=== PATIENT | female | born 1955 | race Caucasian/White ===

== ENCOUNTER 2019-11-29 09:30 | Outpatient (RCR) | payer MEDICARE, MEDICAID, SELFPAY | END 2019-12-24 23:59 | disposition home or self-care (01) | LOC: SPT 09:30 | PROVIDERS: Family Provider Registered Nurse; PCP Registered Nurse; Referring Provider Student in an Organized Health Care Education/Training Program; Visit Provider Registered Nurse | DX: Z86.73 Personal history of transient ischemic attack (TIA), and cerebral infarction without residual deficits (principal); I10 Essential (primary) hypertension | CPT/HCPCS: 97110; 97116; 97161 ==

== ENCOUNTER 2019-12-27 06:00 | Outpatient (RCR) | payer MEDICARE, MEDICAID, SELFPAY | END 2020-01-22 23:59 | disposition home or self-care (01) | LOC: SPT 06:00 | PROVIDERS: Family Provider Registered Nurse; PCP Registered Nurse; Referring Provider Student in an Organized Health Care Education/Training Program; Visit Provider Registered Nurse | DX: G45.9 Transient cerebral ischemic attack, unspecified (principal); I10 Essential (primary) hypertension | CPT/HCPCS: 97110; 97116 ==

== ENCOUNTER 2019-12-28 15:04 | Outpatient (CLI) | payer MEDICARE, MEDICAID, SELFPAY ==
--- NOTE | 2019-12-28 | XR_ITS ---
WS: [id number] KNEE RIGHT TECHNIQUE: 2 views of the right knee CLINICAL INFORMATION: KNEE PAIN COMPARISON: None. FINDINGS: Osteopenia. Moderate degenerative arthritis both medial joint compartments worse in the right with subchondral sclerosis. Hypertrophic right patella. No significant joint effusion. Hypertrophic changes along the joint line. XR/XR knee RT 1-2V [id number] IMPRESSION: Moderate tricompartmental arthritis both knees worse on the right involving the medial joint compartment and patellofemoral articulation. MTDD
--- NOTE | 2019-12-28 15:14 | XR_ITS ---
WS: [id number] KNEE LEFT TECHNIQUE: 2 views of the left knee CLINICAL INFORMATION: KNEE PAIN COMPARISON: None. FINDINGS: Lateral and sunrise view only of the left knee Osteopenia. Hypertrophic patella. Moderate to advanced degenerative narrowing at the patellofemoral a rticulation. No significant effusion. XR/XR knee LT 1-2V [id number] IMPRESSION: 1. Moderate tricompartmental arthritis left knee. 2. No significant joint effusion. 3. Hypertrophic patella. 4. Osteopenia.
--- NOTE | 2019-12-28 15:14 | XR_ITS ---
WS: [id number] KNEE RIGHT TECHNIQUE: 2 views of the right knee CLINICAL INFORMATION: KNEE PAIN COMPARISON: None. FINDINGS: Osteopenia. Moderate degenerative arthritis both medial joint compartments worse in the right with oliva bchondral sclerosis. Hypertrophic right patella. No significant joint effusion. Hypertrophic changes along the joint line. XR/XR knee RT 1-2V [id number] IMPRESSION: Moderate tricompartmental arthritis both knees worse on the right involving the medial joint compartment and patellofemoral articulation.
== END 2019-12-28 15:05 | disposition home or self-care (01) ==
LOC: RAD 15:10
PROVIDERS: Family Provider Registered Nurse; PCP Registered Nurse; Visit Provider Orthopaedic Surgery
DX: M13.862 Other specified arthritis, left knee (principal); M13.861 Other specified arthritis, right knee; M85.88 Other specified disorders of bone density and structure, other site
CPT/HCPCS: 73560; 73565

== ENCOUNTER 2020-01-13 12:06 | Outpatient (CLI) | payer MEDICARE, MEDICAID, SELFPAY ==
--- NOTE | 2020-01-13 12:13 | MM_ITS ---
WS: [id number] BILATERAL DIGITAL SCREENING MAMMOGRAM WITH CAD CLINICAL INFORMATION: SCREENING HISTORY: Screening mammogram. No current complaints. COMPARISON: None. TECHNIQUE: Bilateral CC and MLO views. FINDINGS: Fatty-replaced breasts bilaterally. Lucent centered calcifications. No suspicious focal mass, asymmet ry, calcifications, or architectural distortion. No evidence of malignancy. MM/[place] [id number] IMPRESSION: BI-RADS: 2-Benign FOLLOW UP: 1 Year Follow-up Recommend return to annual screening mammography.
== END 2020-01-13 12:07 | disposition home or self-care (01) ==
LOC: RADSHAW 12:06
PROVIDERS: Family Provider Registered Nurse; PCP Registered Nurse; Visit Provider Registered Nurse
DX: Z12.31 Encounter for screening mammogram for malignant neoplasm of breast (principal)
CPT/HCPCS: 77067

== ENCOUNTER 2020-01-23 06:00 | Outpatient (RCR) | payer MEDICARE, MEDICAID, SELFPAY | END 2020-02-14 23:00 | disposition home or self-care (01) | LOC: SPT 06:00 | PROVIDERS: Family Provider Registered Nurse; PCP Registered Nurse; Referring Provider Student in an Organized Health Care Education/Training Program; Visit Provider Registered Nurse | DX: Z01.89 Encounter for other specified special examinations (principal) ==